=== PATIENT | male | born 1965 | race African-American/Black ===

== ENCOUNTER → 2023-12-04 | Day surgery (SDC) | payer MEDICARE ==
[~2023-12-04] MED LIST: ASPIRIN81 MG PO; ATORVASTATIN CA10 MG PO; COQ-10100 MG; FENTANYL CITRATE/PF 100MCG/2 ML INJ ONE; LIDOCAINE HCL 2% LOCAL INJ 5 ML SDV VIAL INJ ONE; LOSARTAN POTASS25 MG PO; MIDAZOLAM HCL 2 MG/2 ML VIAL ONE; MULTI-VITAMIN1 EACH PO; OZEMPIC2 MG/0.75; PROPOFOL IV EMULSION 10 MG/ML 20 ML VIAL ONE; VENLAFAXINE HCL75 MG PO
[2023-12-04] MEDS: LACTATED RINGER'S 1,000 ML ONE (06:47)
[2023-12-04 08:06] VITALS: TEMP 97.6
[2023-12-04 08:36] VITALS: BP 132/82; PULSE 62; RESP 16; O2SAT 98
== END | disposition home or self-care (01) ==
LOC: ENDO 05:36
PROVIDERS: ATTEND Surgery
DX: K21.9 Gastro-esophageal reflux disease without esophagitis (principal); K20.90 Esophagitis, unspecified without bleeding; Z98.84 Bariatric surgery status; K44.9 Diaphragmatic hernia without obstruction or gangrene; K31.89 Other diseases of stomach and duodenum; I10 Essential (primary) hypertension; E78.5 Hyperlipidemia, unspecified; F41.9 Anxiety disorder, unspecified; F32.A Depression, unspecified; Z01.810 Encounter for preprocedural cardiovascular examination; Z79.82 Long term (current) use of aspirin; Z79.85 Long-term (current) use of injectable non-insulin antidiabetic drugs; Z68.30 Body mass index [BMI] 30.0-30.9, adult
CPT/HCPCS: 43239; 88305; 93005; J2001; J2250; J2704; J3010; J7121